=== PATIENT | male | born 1960 | race Two or more races ===

== ENCOUNTER 2023-06-14 14:47 | Emergency (ER) | payer BC ==
[~2023-06-14] VITALS: Ht 165.1 cm; Wt 96.7 kg
[2023-06-14 15:10] VITALS: BP 149/71; PULSE 78; RESP 16; O2SAT 98
[2023-06-14] MEDS ORDERED: GLUCAGON EMERG KIT 1mg/1ml IM ONE (15:15)
== END 2023-06-14 19:52 | disposition left against medical advice (07) ==
LOC: ER 14:47
DX: R13.10 Dysphagia, unspecified (principal)
CPT/HCPCS: 70490; 71250; 74176; 96372; 99285; J1610